=== PATIENT | male | born 2000 | race Caucasian/White ===

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

== ENCOUNTER 2021-05-09 23:40 | Emergency (ER) | payer OTHER ==
[~2021-05-09] VITALS: Ht 188 cm; Wt 113.4 kg
[2021-05-10 00:02] VITALS: BP 177/98
--- NOTE | 2021-05-10 00:11 | NUR ---
[facility]: OD : 20/20 OS : 20/20 OU : 20/15
[2021-05-10] MEDS ORDERED: TETRACAINE HCL/PF 0.5% OPTH 4 ML BTL OP ONE (01:05)
[2021-05-10] MEDS ORDERED: FLUORESCEIN OPTH STRIP 1 MG OP ONE (01:05)
--- NOTE | 2021-05-10 01:08 | NUR ---
PT AMBULATORY TO BED #11
[2021-05-10] MEDS ORDERED: OFLOS LEFT EYE (01:51)
[2021-05-10 02:05] VITALS: BP 177/98
--- NOTE | 2021-05-10 02:05 | NUR ---
Patient discharged with v/s stable. Written and verbal after care instructions given and explained. Patient alert, oriented and verbalized understanding of instructions. Ambulatory with steady gait. All questions addressed prior to discharge. ID band removed. Patient advised to follow up with PMD. Rx of ofloxacin given. Patient educated on indication of medication including possible reaction and side effects. Opportunity to ask questions provided and answered.
== END 2021-05-10 02:05 | disposition home or self-care (01) ==
LOC: MED 23:40
DX: T15.02XA Foreign body in cornea, left eye, initial encounter (principal); Z79.899 Other long term (current) drug therapy; X58.XXXA Exposure to other specified factors, initial encounter; Y93.89 Activity, other specified; Y92.89 Other specified places as the place of occurrence of the external cause; Y99.8 Other external cause status
CPT/HCPCS: 90471; 90715; 99283

== ENCOUNTER 2021-10-08 19:08 | Emergency (ER) | payer OTHER ==
[~2021-10-08] VITALS: Ht 188 cm; Wt 143.3 kg
[~2021-10-08 19:08] MED LIST: OFLOS LEFT EYE
[2021-10-08 19:10] VITALS: BP 160/101
--- NOTE | 2021-10-08 19:15 | NUR ---
PT TAKEN TO BED 9
--- NOTE | 2021-10-08 19:22 | NUR ---
GAVE REPORT TO MARISA OMALLEY. TRANSFER OF CARE AT THIS TIME.
--- NOTE | 2021-10-08 20:03 | NUR ---
21 YO/M BIB SELF W C/O R HAND MIDDLE FINGER PRESSURE PAIN 1/10 AROUND KNUCKLE AREA, +SWELLING, +FINGER APPEARING CROOKED, S/P HEARING A POP WHILE FINGER WRESTLING. CAP REFIL <2SEC, +ROM. PT SITTING IN BED LOCKED IN LOWEST POSITION. PT DOES NOT WANT ANY PAIN MEDICATION AT THIS TIME. BREATHING EVEN AND UNLABORED. WILL CONTINUE TO MONITOR. PMH:DENIES ALLERGIES: DENIES
--- NOTE | 2021-10-08 20:03 | NUR ---
X-Ray at bedside.
--- NOTE | 2021-10-08 20:03 | NUR ---
Dr. Trevino examining patient.
[2021-10-08] MEDS ORDERED: ACETAMINOPHEN EXTRA STRENGTH 500 MG TAB PO ONE (20:15)
--- NOTE | 2021-10-08 20:16 | NUR ---
PT AT BEDSIDE.
[2021-10-08] MEDS ORDERED: ACET-2619 PO (20:54)
[2021-10-08 21:39] VITALS: BP 160/74
== END 2021-10-08 21:39 | disposition home or self-care (01) ==
LOC: MED 19:08
DX: S62.642A Nondisplaced fracture of proximal phalanx of right middle finger, initial encounter for closed fracture (principal); Z79.899 Other long term (current) drug therapy; X58.XXXA Exposure to other specified factors, initial encounter; Y93.89 Activity, other specified; Y92.89 Other specified places as the place of occurrence of the external cause; Y99.8 Other external cause status
CPT/HCPCS: 73140; 99283